=== PATIENT | female | born 1950 | race Caucasian/White ===

== ENCOUNTER 2021-05-12 18:06 | Observation (INO) ==
[2021-05-12] MEDS ORDERED: cefTRIAXone 2,000 MG in 0.9 % Sodium Chloride Mini Bag 100 ML IVPB ONE (18:16)
[2021-05-12] MEDS ORDERED: 0.9 % Sodium Chloride 1,000 ML IVC ONE (18:16)
[2021-05-12] MEDS ORDERED: 0.9 % Sodium Chloride 1,000 ML IVC SCH (18:30)
[2021-05-12 18:38] LABS: Eosinophils % 0.4 %; Hematocrit 40.5 % (35.3-44.9); Hemoglobin 14.3 g/dL (11.5-15.4); Immature Granulocytes % 0.3 % (0-4); Lymphocytes % 12.4 %; Mean Corpuscular HGB Conc 35.3 g/dL (31.6-35.5); Mean Corpuscular Hemoglobin 30.2 pg (28.0-33.3); Mean Corpuscular Volume 85.4 fL (83.0-100.0); Mean Platelet Volume 9.5 fL (9.4-12.4); Monocytes % 7.7 %; Platelet Count 214 K/mcL (140-400); Red Blood Count 4.74 M/mcL (3.82-4.97); Red Cell Distribution Width 12.1 % (11.5-14.5); Segmented Neutrophils % 78.8 %; White Blood Count 7.4 K/mcL (4.3-11.1)
[2021-05-12 18:39] LABS: Basophils % 0.4 %; Lymphocytes # 0.9 K/mcL (0.6-4.6); Monocytes # 0.6 K/mcL (0.0-1.3); Neutrophils # 5.9 K/mcL (1.6-8.9)
[2021-05-12 18:56] LABS: Albumin 4.2 g/dL (3.5-5.7); Albumin/Globulin Ratio 1.3 (1.1-2.2); Bilirubin,Direct 0.2 mg/dL (0.0-0.2); Bilirubin,Indirect 0.6 mg/dL (0.0-1.0); Bilirubin,Total 0.8 mg/dL (0.3-1.0); Globulin 3.3 g/dL (2.4-3.5); Total Protein 7.5 g/dL (6.4-8.9)
[2021-05-12 18:57] LABS: Calcium 8.6 mg/dL (8.6-10.3); Potassium 3.7 mEq/L (3.5-5.1)
[2021-05-12] MEDS ORDERED: MOM Conc 10 ML UD.LIQ PO PRN (22:03)
[2021-05-12] MEDS ORDERED: Acetaminophen 325 MG TABLET PO PRN (22:03)
[2021-05-12] MEDS ORDERED: Naloxone 0.4 MG/ML INJ IVP PRN (22:03)
[2021-05-12] MEDS ORDERED: Ibuprofen 400 MG TABLET PO PRN (22:03)
[2021-05-12] MEDS ORDERED: Mag Hydrox/Al Hydrox/Simeth 30 ML UDC PO PRN (22:03)
[2021-05-12] MEDS ORDERED: Melatonin 3 MG TABLET PO PRN (22:03)
[2021-05-12] MEDS ORDERED: Ondansetron ODT 4 MG TAB.RAPDIS SL PRN (22:03)
[2021-05-13] MEDS: 0.9 % Sodium Chloride 1,000 ML IVC SCH ×4 (04:54→21:15)
[2021-05-13 07:16] LABS: Calcium 8.1 mg/dL (8.6-10.3); Potassium 3.9 mEq/L (3.5-5.1)
[2021-05-13] MEDS: Metoprolol XL (24 HR) Succ 25 MG TAB.ER.24H PO SCH (09:19)
[2021-05-14 06:16] VITALS: BP 158/97
[2021-05-14] MEDS: 0.9 % Sodium Chloride 1,000 ML IVC SCH (06:22)
[2021-05-14] MEDS: Metoprolol XL (24 HR) Succ 25 MG TAB.ER.24H PO SCH (08:10)
== END 2021-05-14 10:05 | disposition home or self-care (01) ==
LOC: INPPIK 18:06 → EMEROOPIK 18:06 → INPPIK 20:26
PROVIDERS: ADMIT Family Medicine; ATTEND Family Medicine